=== PATIENT | female | born 1970 | race Caucasian/White ===

== ENCOUNTER → 2016-10-23 | Outpatient (CLI) | payer OTHER ==
--- NOTE | 2016-10-24 12:48 | MAMMOGRAPHY REPORT ---
BILATERAL DIGITAL SCREENING MAMMOGRAM TOMOSYNTHESIS WITH CAD: 10/23/2016 CLINICAL HISTORY: Routine screening examination. TECHNIQUE: Breast tomosynthesis in addition to standard 2D mammography was performed. Current study was also evaluated with a Computer Aided Detection (CAD) system. COMPARISON: Comparison is made to exams dated: 09/26/2015 mammogram, 08/24/2014 mammogram, and 08/21/19 14 mammogram - [facility]. BREAST COMPOSITION: There are scattered areas of fibroglandular density in both breasts. FINDINGS: No new suspicious mass, architectural distortion or cluster of microcalcifications is see n. There is a stable intramammary lymph node in the left upper outer quadrant. IMPRESSION: ACR BI-RADS CATEGORY 1: NEGATIVE There is no mammographic evidence of malignancy. A 1 year screening mammogram is recommended. The p atient will receive written notification of the results. Approximately 10% of breast cancers are not detected with mammography. A negative mammographic repor t should not delay biopsy if a clinically suggestive mass is present. Helen Perez M.D. ay/:10/24/2016 07:35:41 [place] Operator: Tea JONES(Carie)(Juice), [facility] letter sent: Normal 1/2 BI-RADS Code: ACR BI-RADS Category 1: Negative
== END | disposition home or self-care (01) ==
LOC: C.MAMM 13:47
PROVIDERS: ATTEND Family Medicine
DX: Z12.31 Encounter for screening mammogram for malignant neoplasm of breast (principal)

== ENCOUNTER 2018-10-15 17:41 | Inpatient (IN) ==
[2018-10-15] MEDS ORDERED: SODIUM CHLORIDE 0.9% 1000ML 2,000 ML IV ONE (18:31)
--- NOTE | 2018-10-15 18:40 | Emergency Department Note ---
History of Present Illness General Chief Complaint: Illness Stated Complaint: ILLNESS, L SIDE PAIN, Source: patient Mode of arrival: ambulatory Limitations: no limitations History of Present Illness Provider complaint: fever, weakness and flu like symptoms Onset (ago): week(s) 2 Maximum Temperature: 101.9 C Temperature Source: oral Maximum Pain Intensity: 6 Current Pain Intensity: 6 Context: + URI symptoms, + cough, + diarrhea and + headache; no recent travel Associated symptoms: + chills, + myalgias, + rhinorrhea, + nasal congestion, + sore throat, + chest pain, + shortness of breath, + nausea and + vomiting Relieved By: + nothing Exacerbated By: + nothing Treatments prior to arrival fever: + none This 48-year-old female patient presents emergency department today, ambulatory, accompanied by her . She is complaining of "I do not feel good". The pa valentin states for 2 weeks, "I have been sick". She reports upper respiratory infection symptoms including congestion, rhinorrhea, and sore throat. Over the weekend, the patient states the cold "moved into my chest". She states she has developed coughing, chest congestion, and dyspnea. She denies any fevers today, but states last week she had fevers of 101.9. She is taken no medications for the fever or other symptoms because she has been sick. She does report pain "in my left side that goes to my back". She does report the cough is productive of clear mucus. She did get a flu vaccination this year. She describes the pain as achy. She denies any aggravating or alleviating factors, but then states that coughing seems to make it worse. She has difficulty breathing, again with coughing, and states this has developed recently. The patient denies any dysuria, urinary frequency, constipation, abdominal pain, ongoing diarrhea, numbness or tingling, recent trauma, or neurological symptoms. Home Medications Home Medications Medication Instructions Recorded Confirmed Type ascorbic acid (vitamin C) 1 g PO DAILY 10/15/18 10/15/18 History calcium carbonate-vitamin D3 1 cap PO DAILY 10/15/18 10/15/18 History [Calcium 600 with Vitamin D3] ferrous sulfate 325 mg PO DAILY 10/15/18 10/15/18 History magnesium 250 mg PO DAILY 10/15/18 10/15/18 History oh-0-zqa-epa-fish oil-vit D3 [Fish 1 cap PO DAILY 10/15/18 10/15/18 History Oil-Vit D3] sumatriptan succinate [Imitrex] 1 tab PO UD 10/15/18 10/15/18 History vitamin E 400 unit PO DAILY 10/15/18 10/15/18 History Allergies Allergy/AdvReac Type Severity Reaction Status Date / Time Penicillins Allergy Unknown Hives Verified 10/15/18 19:20 acetaminophen [From Vicodin] AdvReac Unknown Syncope Verified 10/15/18 19:20 hydrocodone [From Vicodin] AdvReac Unknown Syncope Verified 10/15/18 19:20 nickel AdvReac Unknown Rash Verified 10/15/18 19:20 Past Med/Surg History Medical History Migraines (Chronic) Surgical History History of (Chronic) Family History Mother Breast cancer Social History Preferred Language: Peruvian Communication Ability: Effective 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 Beliefs That Will Affect Care: None Current Living Situation: Family and Significant Other Other Information That Helps Us Care for You: No Feels Safe at Home: Yes Safety Concerns: Feels Safe At This Time Smoking Status: Never smoker Hx Alcohol Use: No Hx Substance Use: No Review of Systems A total of 10 systems reviewed and were otherwise negative Physical Exam Vital Signs Vital Signs - 24 hr 10/15/18 18:02 10/15/18 20:00 10/15/18 21:00 Temperature 38.0 C H Temperature Source Oral Sepsis Recent Fever Within 48 Hours Yes Sepsis New/Unexplained Change in Mental Status No Sepsis Action Taken by Nursing No Action Required Pulse Rate 121 H 99 H Pulse Rate [Bilateral] 108 H Pulse Rate [Right Finger] Pulse Rhythm [Bilateral] Regular Pulse Strength [Bilateral] Normal Respiratory Rate 28 H 20 18 Respiratory Effort / Characteristics Non-Labored Respiratory Depth Normal Respiratory Pattern Regular Blood Pressure 140/69 112/71 Blood Pressure [Right Arm] 108/79 Blood Pressure Mean 92 Blood Pressure Mean [Right Arm] 88 Blood Pressure Position [Right Arm] Sitting Pulse Oximetry 88 L 97 98 Oxygen Delivery Method Room Air Nasal Cannula Nasal Cannula Oxygen Flow Rate 2 2 10/15/18 23:55 Temperature 37.0 C Temperature Source Oral Sepsis Recent Fever Within 48 Hours Sepsis New/Unexplained Change in Mental Status Sepsis Action Taken by Nursing Pulse Rate Pulse Rate [Bilateral] Pulse Rate [Right Finger] 85 Pulse Rhythm [Bilateral] Pulse Strength [Bilateral] Respiratory Rate 20 Respiratory Effort / Characteristics Respiratory Depth Respiratory Pattern Blood Pressure Blood Pressure [Right Arm] 109/74 Blood Pressure Mean Blood Pressure Mean [Right Arm] 85 Blood Pressure Position [Right Arm] Pulse Oximetry 94 Oxygen Delivery Method Nasal Cannula Oxygen Flow Rate 2 VITALS: Vitals are noted on the nurse's note and reviewed by myself. Vital signs stable. GENERAL: This is a 48-year-old white female, ill-appearing, in no acute distress, nondiaphoretic, well-developed well-nourished. SKIN: The skin was warm, without rashes, erythema, edema, or bruising. There is no tenting of the skin. Capillary reflex less than 2 seconds. HEAD: Normocephalic atraumatic. EARS: External auditory canals clear, tympanic membranes pearly olivarez without erythema or effusion bilaterally. EYES: Pupils equal round and reactive to light and accommodation. Conjunctivae without injection, sclerae without icterus. Extraocular movements intact. NOSE: Patent, turbinates without inflammation or discharge. No sinus tenderness. MOUTH: Mucous membranes moist. Tonsils are not enlarged. Pharynx without erythema or exudate. Uvula midline. Airway patent. Tongue does not deviate. NECK: Supple without nuchal rigidity. No lymphadenopathy. No thyromegaly. Cervical spine is nontender. No JVD. HEART: Regular rate and rhythm without murmurs gallops or rubs. LUNGS: Diminished lung sounds at the bases. The lungs were otherwise clear to auscultation bilaterally without wheezes, rales or rhonchi. No dullness to percussion. No retractions or accessory muscle use. ABDOMEN: Positive bowel sounds x 4. Normal tympanic percussion. Soft, nontender, without masses or organomegaly. [place] sign negative. No guarding or rebound tenderness. MUSCULOSKELETAL: No muscle atrophy, erythema, or edema noted. Full range of motion without joint tenderness in all extremities. No tenderness to palpation. Normal gait. Strength 5/5 throughout. NEURO: Patient was alert and oriented to person place and time. Normal sensation to light and sharp touch. Deep tendon reflexes 2+ throughout. No focal neurological deficits. Cranial nerves II through XII grossly intact. Course The patient was seen and evaluated as above. IV access obtained, labs drawn. The patient was hydrated with 2 L normal saline solution. Oxygen initiated due to hypoxia with O2 sat of 88%. Imaging performed and reviewed by myself and radiologist as above. Labs reviewed by myself. I discussed the findings with the patient at bedside. I consulted with the ED pharmacist, Audrey. 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 I do feel that the patient would benefit from inpatient admission and IV antibiotics. I discussed the case with the caseworker protective services, Beau. The patient does meet criteria for admission. I consulted with Dr. Luna of the [facility] hospitalist service. He did agree to see and evaluate the patient. I discussed the case with my attending. Please see hospitalist dictation regarding ongoing management care of this patient. Administered Medications Acetaminophen (Tylenol) 650 mg PO Q4H PRN PRN Reason: pain/fever Stop: 11/14/18 19:58 Last Admin: 10/15/18 20:54 Dose: 650 mg Documented by: [id number] Enoxaparin Sodium (Lovenox) 40 mg SQ Q24H [facility] Stop: 11/14/18 21:59 Last Admin: 10/15/18 22:00 Dose: 40 mg Documented by: [id number] Potassium Chloride 40 meq/ (Sodium Chloride) 1,020 mls @ 100 mls/hr IV .[id number] [facility] Stop: 11/14/18 22:29 Last Admin: 10/15/18 22:28 Dose: 100 mls/hr Documented by: [id number] Ipratropium [place] (Atrovent 0.02% 0.5mg/2.5ml) 0.5 mg INH Q6R SOFI Stop: 11/14/18 21:25 Last Admin: 10/15/18 22:10 Dose: Not Given Documented by: [id number] Levalbuterol HCl (Xopenex 1.25mg/0.5ml Neb) 1.25 mg INH Q6R SOFI Stop: 11/14/18 21:25 Last Admin: 10/15/18 22:10 Dose: Not Given Documented by: [id number] Discontinued Medications Sodium Chloride (Nss 1000ml) 2,000 mls @ 999 mls/hr IV .[id number] ONE Stop: 10/15/18 20:31 Last Infusion: 10/15/18 21:46 Dose: 0 mls/hr Documented by: [id number] Admin: 10/15/18 19:10 Dose: 999 mls/hr Documented by: [id number] Cefepime HCl 2,000 mg/ Syringe 20 mls @ 5.5 mls/min IV NOW STA Stop: 10/15/18 19:32 Last Admin: 10/15/18 19:54 Dose: 5.5 mls/min Documented by: [id number] Azithromycin 500 mg/ Dextrose 255 mls @ 125 mls/hr IV ONE ONE Stop: 10/15/18 21:31 Last Infusion: 10/15/18 22:11 Dose: 0 mls/hr Documented by: [id number] Admin: 10/15/18 19:54 Dose: 125 mls/hr Documented by: [id number] Potassium Chloride (Klor-Con M20) 40 meq PO NOW STA Stop: 10/15/18 19:46 Last Admin: 10/15/18 20:53 Dose: 40 meq Documented by: [id number] Medical Decision Making Differential Diagnosis + cellulitis, + fever of unknown origin, + gastroenteritis, + community acquired pneumonia, + pyelonephritis, + viral infection, + sepsis, + influenza, + viral syndrome, + strep pharyngitis, + tonsillitis, + mononucleosis, + meningitis, + encephalitis, + Lyme disease, + bronchitis and + pneumonia Home Medications Current Medication List: was personally reviewed by [facility] Laboratory Data Leukocytosis of 16,000. No significant anemia. INR elevated at 1.2. Renal, hepatic function without significant abnormalities. Patient was slightly hypokalemic at 2.9. Glucose mildly elevated at 113. Troponin negative. Lipase normal. Lactate 1.0. Magnesium 2.0. Urinalysis does appear contaminated, but was positive for 3+ bacteria and nitrites. Negative influenza testing. Result diagrams: 10/15/18 18:35 10/15/18 18:35 Lab Results 10/15/18 10/15/18 10/15/18 Range/Units 18:35 18:35 18:35 WBC 16.55 H (4.8-10.8) K/uL RBC 4.12 L (4.2-5.4) M/uL Hgb 12.1 (12.0-16.0) g/dL Hct 35.3 L (37-47) % MCV 85.7 (80-100) fL MCH 29.4 (25-34) pg MCHC 34.3 (32-36) g/dL RDW Std Deviation 41.4 (36.4-46.3) fL RDW Coeff of Alok 13.0 (11.5-14.5) % Plt Count 282 (130-400) K/uL MPV 11.1 H (7.4-10.4) fL Immature Gran % (Auto) 0.4 % Neut % (Auto) 89.4 % Lymph % (Auto) 4.1 % Anderson % (Auto) 6.0 % Eos % (Auto) 0.0 % Baso % (Auto) 0.1 % Immature Gran # (Auto) 0.07 H (0.00-0.02) K/uL Neut # (Auto) 14.79 H (1.4-6.5) K/uL Lymph # (Auto) 0.68 L (1.2-3.4) K/uL Anderson # (Auto) 1.00 H (0.11-0.59) K/uL Eos # (Auto) 0.00 (0-0.5) K/uL Baso # (Auto) 0.01 (0-0.2) K/uL Dohle Bodies 1+ PT 11.8 (9.0-12.0) Seconds INR 1.2 H (0.9-1.1) APTT 24.0 (21.0-31.0) Seconds PTT Ratio 0.9 Sodium 137 (136-145) mmol/L Potassium 2.9 L (3.5-5.1) mmol/L Chloride 100 (98-107) mmol/L Carbon Dioxide 30 (21-32) mmol/L Anion Gap 7.0 (3-11) BUN 11 (7-18) mg/dl Creatinine 0.59 L (0.6-1.2) mg/dl Est Cr Clr Drug Dosing 137.1 ml/min Est GFR ( Amer) 124.7 Est GFR (Non-Af Amer) 107.6 BUN/Creatinine Ratio 18.9 (10-20) Glucose 113 H (70-99) mg/dl Lactate (0.4-2.0) mmol/L Calcium 8.7 (8.5-10.1) mg/dl Magnesium (1.8-2.4) mg/dl Total Bilirubin 0.7 (0.2-1) mg/dl AST 9 L (15-37) U/L ALT 14 (12-78) U/L Alkaline Phosphatase 84 (45-117) U/L Troponin I < 0.015 (0-0.045) ng/ml Total Protein 7.5 (6.4-8.2) gm/dl Albumin 2.4 L (3.4-5.0) gm/dl Globulin 5.1 H (2.5-4.0) gm/dl Albumin/Globulin Ratio 0.5 L (0.9-2) Lipase 157 (73-393) U/L Urine Color Urine Appearance (Clear) Urine pH (4.5-7.5) Ur Specific [place] (1.000-1.030) Urine Protein (Negative) Urine Glucose (UA) (Negative) Urine Ketones (Negative) Urine Blood (Negative) Urine Nitrite (Negative) Urine Bilirubin (Negative) Urine Urobilinogen (Negative) Ur Leukocyte Esterase (Negative) Urine WBC (Auto) (0-5) /hpf Urine RBC (Auto) (0-4) /hpf U Hyaline Cast (Auto) (0-5) /lpf U Epithel Cells (Auto) (0-5) /lpf Urine Bacteria (Auto) (Negative) Ur Renal Epithelial Cell Influenza Type A Ag (Neg) Influenza Type B Ag (Neg) 10/15/18 10/15/18 10/15/18 Range/Units 18:35 18:35 18:54 WBC (4.8-10.8) K/uL RBC (4.2-5.4) M/uL Hgb (12.0-16.0) g/dL Hct (37-47) % MCV (80-100) fL MCH (25-34) pg MCHC (32-36) g/dL RDW Std Deviation (36.4-46.3) fL RDW Coeff of Alok (11.5-14.5) % Plt Count (130-400) K/uL MPV (7.4-10.4) fL Immature Gran % (Auto) % Neut % (Auto) % Lymph % (Auto) % Anderson % (Auto) % Eos % (Auto) % Baso % (Auto) % Immature Gran # (Auto) (0.00-0.02) K/uL Neut # (Auto) (1.4-6.5) K/uL Lymph # (Auto) (1.2-3.4) K/uL Anderson # (Auto) (0.11-0.59) K/uL Eos # (Auto) (0-0.5) K/uL Baso # (Auto) (0-0.2) K/uL Dohle Bodies PT (9.0-12.0) Seconds INR (0.9-1.1) APTT (21.0-31.0) Seconds PTT Ratio Sodium (136-145) mmol/L Potassium (3.5-5.1) mmol/L Chloride (98-107) mmol/L Carbon Dioxide (21-32) mmol/L Anion Gap (3-11) BUN (7-18) mg/dl Creatinine (0.6-1.2) mg/dl Est Cr Clr Drug Dosing ml/min Est GFR ( Amer) Est GFR (Non-Af Amer) BUN/Creatinine Ratio (10-20) Glucose (70-99) mg/dl Lactate 1.0 (0.4-2.0) mmol/L Calcium (8.5-10.1) mg/dl Magnesium 2.0 (1.8-2.4) mg/dl Total Bilirubin (0.2-1) mg/dl AST (15-37) U/L ALT (12-78) U/L Alkaline Phosphatase (45-117) U/L Troponin I Cancelled (0-0.045) ng/ml Total Protein (6.4-8.2) gm/dl Albumin (3.4-5.0) gm/dl Globulin (2.5-4.0) gm/dl Albumin/Globulin Ratio (0.9-2) Lipase Cancelled (73-393) U/L Urine Color Urine Appearance (Clear) Urine pH (4.5-7.5) Ur Specific [place] (1.000-1.030) Urine Protein (Negative) Urine Glucose (UA) (Negative) Urine Ketones (Negative) Urine Blood (Negative) Urine Nitrite (Negative) Urine Bilirubin (Negative) Urine Urobilinogen (Negative) Ur Leukocyte Esterase (Negative) Urine WBC (Auto) (0-5) /hpf Urine RBC (Auto) (0-4) /hpf U Hyaline Cast (Auto) (0-5) /lpf U Epithel Cells (Auto) (0-5) /lpf Urine Bacteria (Auto) (Negative) Ur Renal Epithelial Cell Influenza Type A Ag (Neg) Influenza Type B Ag (Neg) 10/15/18 10/15/18 Range/Units 19:02 19:12 WBC (4.8-10.8) K/uL RBC (4.2-5.4) M/uL Hgb (12.0-16.0) g/dL Hct (37-47) % MCV (80-100) fL MCH (25-34) pg MCHC (32-36) g/dL RDW Std Deviation (36.4-46.3) fL RDW Coeff of Alok (11.5-14.5) % Plt Count (130-400) K/uL MPV (7.4-10.4) fL Immature Gran % (Auto) % Neut % (Auto) % Lymph % (Auto) % Anderson % (Auto) % Eos % (Auto) % Baso % (Auto) % Immature Gran # (Auto) (0.00-0.02) K/uL Neut # (Auto) (1.4-6.5) K/uL Lymph # (Auto) (1.2-3.4) K/uL Anderson # (Auto) (0.11-0.59) K/uL Eos # (Auto) (0-0.5) K/uL Baso # (Auto) (0-0.2) K/uL Dohle Bodies PT (9.0-12.0) Seconds INR (0.9-1.1) APTT (21.0-31.0) Seconds PTT Ratio Sodium (136-145) mmol/L Potassium (3.5-5.1) mmol/L Chloride (98-107) mmol/L Carbon Dioxide (21-32) mmol/L Anion Gap (3-11) BUN (7-18) mg/dl Creatinine (0.6-1.2) mg/dl Est Cr Clr Drug Dosing ml/min Est GFR ( Amer) Est GFR (Non-Af Amer) BUN/Creatinine Ratio (10-20) Glucose (70-99) mg/dl Lactate (0.4-2.0) mmol/L Calcium (8.5-10.1) mg/dl Magnesium (1.8-2.4) mg/dl Total Bilirubin (0.2-1) mg/dl AST (15-37) U/L ALT (12-78) U/L Alkaline Phosphatase (45-117) U/L Troponin I (0-0.045) ng/ml Total Protein (6.4-8.2) gm/dl Albumin (3.4-5.0) gm/dl Globulin (2.5-4.0) gm/dl Albumin/Globulin Ratio (0.9-2) Lipase (73-393) U/L Urine Color Dark Yellow Urine Appearance Clear (Clear) Urine pH 7.5 (4.5-7.5) Ur Specific [place] 1.022 (1.000-1.030) Urine Protein 2+ H (Negative) Urine Glucose (UA) Negative (Negative) Urine Ketones Negative (Negative) Urine Blood 1+ H (Negative) Urine Nitrite Positive H (Negative) Urine Bilirubin Negative (Negative) Urine Urobilinogen Positive H (Negative) Ur Leukocyte Esterase Negative (Negative) Urine WBC (Auto) 1-5 (0-5) /hpf Urine RBC (Auto) 5-10 H (0-4) /hpf U Hyaline Cast (Auto) 1-5 (0-5) /lpf U Epithel Cells (Auto) >30 H (0-5) /lpf Urine Bacteria (Auto) 3+ H (Negative) Ur Renal Epithelial Cell Not Reportable Influenza Type A Ag Neg for Influ A (Neg) Influenza Type B Ag Neg for Influ B (Neg) Imaging Data Radiologist's Impression: XR chest 1V portable CLINICAL HISTORY: Sepsis. COMPARISON STUDY: No previous studies for comparison. FINDINGS: Lung volumes are diminished. Extensive bibasilar opacities are present. Cardiac size is likely within normal limits. Mediastinal contours are u nremarkable. There is no pneumothorax. No definite pleural effusion. There is no evidence for pulmonary edema. IMPRESSION: Extensive bibasilar opacities which favor pneumonia. Atelectasis could appear similar although is considered less likely. Radiographic follow-up to ensure resolution is recommended. Electronically signed by: Adriel Hayward M.D. 10/15/2018 7:19 PM ECG Data Attestation: I personally reviewed and interpreted this ECG as follows: Indication: SOB/dyspnea Rate (beats per minute): 110 Rhythm: sinus tachycardia Findings: no acute ischemic change and no ectopy Comparison ECG Date: no prior available Blood Pressure Blood Pressure Findings: Normal blood pressure MDM Narrative This 48-year-old female patient presents emergency department today complaining of dyspnea, cough, upper respiratory infection symptoms, chest achiness, and fever. Symptoms are concerning for infectious etiology. I did initiate IV fluids and laboratory evaluation. Workup was concerning for bibasilar pneumonia. 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 Because of this, we did elect to cover for Pseudomonas with cefepime in addition to azithromycin. I feel that the patient will benefit from inpatient admission and IV antibiotics. She was hypoxic with an O2 saturation of 88% on room air while here in the emergency department and required oxygen. Initiated IV cefepime and azithromycin in addition to the IV fluids. I discussed the case with the hospitalist, they did agree to see and evaluate the patient for admission. Please see their dictation regarding ongoing management care of this patient. The chart was completed utilizing [employer] Speech voice recognition software. Grammatical errors, random word insertions, pronoun errors, and incomplete sente nces are an occasional consequence of this system due to software limitations, ambient noise, and hardware issues. Any formal questions or concerns about the content, text, or information contained within the body of this dictation should be directly addressed to the provider for clarification. Impression & Plan Pneumonia, Sepsis, Acute respiratory failure with hypoxia, Hypokalemia Critical Care Time I have personally spent greater than 30 minutes of critical care time in the direct management of this patient. This includes bedside care, interpretation of diagnostic studies, and testing, discussion with consultants, patient, and family members, and other required patient management activities. This 30 minutes is in excess of all separately billable procedures. Critical Care Time: Yes Total Critical Care Time: 30 Discharge Plan Visit Data *Final* Discharge Date/Time: 10/15/18 21:00 Chief Complaint: Illness Stated Complaint: ILLNESS, L SIDE PAIN, ED Provider: Nomi Flores ED Midlevel Provider: Blanco,Nora D Discharge Problem: Pneumonia, Sepsis, Acute respiratory failure with hypoxia, Hypokalemia Patient Disposition: Admitted As Inpatient Discharge Instructions Interventions: ED Discharge Assessment Last Done: 10/15/18 21:00 Discharge Problem: Pneumonia Qualifiers: Pneumonia type: due to unspecified organism Laterality: bilateral Lung location: lower lobe of lung Qualified Code(s): J18.1 - Lobar pneumonia, unspecified organism Sepsis Qualifiers: Sepsis type: sepsis due to unspecified organism Qualified Code(s): A41.9 - Sepsis, unspecified organism
[2018-10-15 19:11] LABS: Hematocrit (blood only) 35.3 % (37-47); Hemoglobin 12.1 g/dL (12.0-16.0); Mean Corpuscular Hgb Conc 34.3 g/dL (32-36); Mean Corpuscular Volume 85.7 fL (80-100); Mean Platelet Volume 11.1 fL (7.4-10.4); Platelet Count 282 K/uL (130-400); RDW Standard Deviation 41.4 fL (36.4-46.3); Red Blood Count 4.12 M/uL (4.2-5.4); White Blood Count 16.55 K/uL (4.8-10.8)
--- NOTE | 2018-10-15 19:20 | XRay Report ---
XR chest 1V portable CLINICAL HISTORY: Sepsis. COMPARISON STUDY: No previous studies for comparison. FINDINGS: Lung volumes are diminished. Extensive bibasilar opacities are present. Cardiac size is lik carmel within normal limits. Mediastinal contours are unremarkable. There is no pneumothorax. No definit e pleural effusion. There is no evidence for pulmonary edema. IMPRESSION: Extensive bibasilar opacities which favor pneumonia. Atelectasis could appear similar al though is considered less likely. Radiographic follow-up to ensure resolution is recommended. Electronically signed by: Adriel Hayward M.D. 10/15/2018 7:19 PM
[2018-10-15 19:28] LABS: Alanine Aminotransferase 14 U/L (12-78); Albumin Level 2.4 gm/dl (3.4-5.0); Aspartate Aminotransferase 9 U/L (15-37); BUN Creatinine Ratio 18.9 (10-20); Blood Urea Nitrogen 11 mg/dl (7-18); Calcium 8.7 mg/dl (8.5-10.1); Carbon Dioxide 30 mmol/L (21-32); Chloride 100 mmol/L (98-107); Creatinine Clr Calc Pharmacy 137.1 ml/min; Est GFR (African American) 124.7; Est GFR (Non-African American) 107.6; Glucose 113 mg/dl (70-99); INR 1.2 (0.9-1.1); Partial Thromboplastin Ratio 0.9; Potassium 2.9 mmol/L (3.5-5.1); Prothrombin Time 11.8 Seconds (9.0-12.0); Sodium 137 mmol/L (136-145)
[2018-10-15] MEDS ORDERED: AZITHROMYCIN 500 MG in DEXTROSE 5% 250 ML IV ONE (19:29)
[2018-10-15] MEDS ORDERED: CEFEPIME 2,000 MG in SYRINGE 7.5 ML IV STA (19:29)
[2018-10-15 19:30] LABS: Appearance Urine Clear (Clear); Bacteria Urine Automated 3+ (Negative); Bilirubin Urine Negative (Negative); Blood Urine 1+ (Negative); Color Urine Dark Yellow; Epithelial Cell Urine Auto >30 /lpf (0-5); Glucose Urine UA Negative (Negative); Ketones Urine Negative (Negative); Leukocyte Esterase Urine Negative (Negative); Nitrite Urine Positive (Negative); Specific Gravity Urine 1.022 (1.000-1.030); Urobilinogen Urine Positive (Negative); pH Urine 7.5 (4.5-7.5)
[2018-10-15 19:32] LABS: Protein Urine 2+ (Negative)
[2018-10-15 19:33] LABS: Albumin Globulin Ratio 0.5 (0.9-2); Alkaline Phosphatase 84 U/L (45-117); Bilirubin,Total 0.7 mg/dl (0.2-1); Globulin 5.1 gm/dl (2.5-4.0); Total Protein 7.5 gm/dl (6.4-8.2); Troponin I < 0.015 ng/ml (0-0.045)
[2018-10-15] MEDS ORDERED: POTASSIUM CHLORIDE 20 MEQ TABCR PO STA (19:45)
[2018-10-15 20:05] LABS: Basophils # (auto) 0.01 K/uL (0-0.2); Basophils % (auto) 0.1 %; Dohle Bodies 1+; Immature Granulocytes # (auto) 0.07 K/uL (0.00-0.02); Immature Granulocytes % (auto) 0.4 %; Lymphocytes # (auto) 0.68 K/uL (1.2-3.4); Lymphocytes % (auto) 4.1 %; Neutrophils # (auto) 14.79 K/uL (1.4-6.5); Neutrophils % (auto) 89.4 %
--- NOTE | 2018-10-15 20:49 | History & Physical Report ---
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 Patient reports she started getting sick about 1 week ago with what she describes as a head cold with sinus congestion. She reports her symptoms were initially getting better however 4 days ago she developed chest congestion with cough. Cough has been progressively getting worse. She reports that she is short of breath with minimal exertion. Cough is productive for a clear sputum. She has been running some fevers, she reports as high as 101. Cough is severe, causing her chest pain, urinary incontinence, headache. She denies exertional chest pain or at rest. No lightheadedness, dizziness, diaphoresis, syncopal events. She reports nausea and poor appetite. No abdominal pain, vomiting, diarrhea. She denies dysuria. 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 In the ED, patient was hypoxic on room air at 88% which improved with oxygen 2 L via nasal cannula. CXR is showing bibasilar pneumonia. WBC 16 K, potassium 2.9, lactic acid 1.0. Patient is tachycardic however BP is stable. Patient was given IVF, IV cefepime, IV azithromycin. Allergies Allergy/AdvReac Type Severity Reaction Status Date / Time Penicillins Allergy Unknown Hives Verified 10/15/18 19:20 acetaminophen [From Vicodin] AdvReac Unknown Syncope Verified 10/15/18 19:20 hydrocodone [From Vicodin] AdvReac Unknown Syncope Verified 10/15/18 19:20 nickel AdvReac Unknown Rash Verified 10/15/18 19:20 Home Medications Home Medications Medication Instructions Recorded Confirmed Type ascorbic acid (vitamin C) 1 g PO DAILY 10/15/18 10/15/18 History calcium carbonate-vitamin D3 1 cap PO DAILY 10/15/18 10/15/18 History [Calcium 600 with Vitamin D3] ferrous sulfate 325 mg PO DAILY 10/15/18 10/15/18 History magnesium 250 mg PO DAILY 10/15/18 10/15/18 History [id number] oil-vit D3 [Fish 1 cap PO DAILY 10/15/18 10/15/18 History Oil-Vit D3] sumatriptan succinate [Imitrex] 1 tab PO UD 10/15/18 10/15/18 History vitamin E 400 unit PO DAILY 10/15/18 10/15/18 History Past Med/Surg History Medical History Migraines (Chronic) Surgical History History of (Chronic) Family History Mother Breast cancer Social History Preferred Language: French Communication Ability: Effective Jive Developer Required: No Beliefs That Will Affect Care: None Current Living Situation: Family and Significant Other Other Information That Helps Us Care for You: No Feels Safe at Home: Yes Safety Concerns: Feels Safe At This Time Smoking Status: Never smoker Hx Alcohol Use: No Hx Substance Use: No Review of Systems ROS per HPI, all other systems reviewed and negative Physical Exam Vital Signs (Past 24 Hours): Last Vital Signs Temp 38.0 C H 10/15/18 18:02 Pulse 121 H 10/15/18 18:02 Resp 28 H 10/15/18 18:02 BP 140/69 10/15/18 18:02 Pulse Ox 88 L 10/15/18 18:02 Constitutional: WD/WN, vitals as above Eyes: PERRL, conjunctivae normal, anicteric sclerae ENMT: Ears: no external ear abnormality Nose: no external nose abnormality Mouth: + edentulous Respiratory: normal respiratory effort; no respiratory distress Auscultation: + diminished lung sounds and + rhonchi (Upper anterior lung head) Cardiovascular: Rate/Rhythm: regular rate and + tachycardic Vessels: normal peripheral pulses Extremities: no edema Gastrointestinal (Abdomen): normal bowel sounds, soft, nontender, no hepatosplenomegaly Musculoskeletal: no cyanosis or clubbing, extremities motor strength 5/5 Skin: no rashes, warm and dry Neurologic: PERRL, EOMI, accommodation nl, no face palsy, no dysarthria Psychiatric: A+Ox3, euthymic affect Results & Data Laboratory Results Laboratory Last Values WBC 16.55 K/uL (4.8-10.8) H 10/15/18 18:35 RBC 4.12 M/uL (4.2-5.4) L 10/15/18 18:35 Hgb 12.1 g/dL (12.0-16.0) 10/15/18 18:35 Hct 35.3 % (37-47) L 10/15/18 18:35 MCV 85.7 fL (80-100) 10/15/18 18:35 MCH 29.4 pg (25-34) 10/15/18 18:35 MCHC 34.3 g/dL (32-36) 10/15/18 18:35 RDW Std Deviation 41.4 fL (36.4-46.3) 10/15/18 18:35 RDW Coeff of Alok 13.0 % (11.5-14.5) 10/15/18 18:35 Plt Count 282 K/uL (130-400) 10/15/18 18:35 MPV 11.1 fL (7.4-10.4) H 10/15/18 18:35 Immature Gran % (Auto) 0.4 % 10/15/18 18:35 Neut % (Auto) 89.4 % 10/15/18 18:35 Lymph % (Auto) 4.1 % 10/15/18 18:35 [place] % (Auto) 6.0 % 10/15/18 18:35 Eos % (Auto) 0.0 % 10/15/18 18:35 Baso % (Auto) 0.1 % 10/15/18 18:35 Immature Gran # (Auto) 0.07 K/uL (0.00-0.02) H 10/15/18 18:35 Neut # (Auto) 14.79 K/uL (1.4-6.5) H 10/15/18 18:35 Lymph # (Auto) 0.68 K/uL (1.2-3.4) L 10/15/18 18:35 [place] # (Auto) 1.00 K/uL (0.11-0.59) H 10/15/18 18:35 Eos # (Auto) 0.00 K/uL (0-0.5) 10/15/18 18:35 Baso # (Auto) 0.01 K/uL (0-0.2) 10/15/18 18:35 Dohle Bodies 1+ 10/15/18 18:35 PT 11.8 Seconds (9.0-12.0) 10/15/18 18:35 INR 1.2 (0.9-1.1) H 10/15/18 18:35 APTT 24.0 Seconds (21.0-31.0) 10/15/18 18:35 PTT Ratio 0.9 10/15/18 18:35 Sodium 137 mmol/L (136-145) 10/15/18 18:35 Potassium 2.9 mmol/L (3.5-5.1) L 10/15/18 18:35 Chloride 100 mmol/L (98-107) 10/15/18 18:35 Carbon Dioxide 30 mmol/L (21-32) 10/15/18 18:35 Anion Gap 7.0 (3-11) 10/15/18 18:35 BUN 11 mg/dl (7-18) 10/15/18 18:35 Creatinine 0.59 mg/dl (0.6-1.2) L 10/15/18 18:35 Est Cr Clr Drug Dosing 137.1 ml/min 10/15/18 18:35 Est GFR ( Amer) 124.7 10/15/18 18:35 Est GFR (Non-Af Amer) 107.6 10/15/18 18:35 BUN/Creatinine Ratio 18.9 (10-20) 10/15/18 18:35 Glucose 113 mg/dl (70-99) H 10/15/18 18:35 Lactate 1.0 mmol/L (0.4-2.0) 10/15/18 18:54 Calcium 8.7 mg/dl (8.5-10.1) 10/15/18 18:35 Magnesium 2.0 mg/dl (1.8-2.4) 10/15/18 18:35 Total Bilirubin 0.7 mg/dl (0.2-1) 10/15/18 18:35 AST 9 U/L (15-37) L 10/15/18 18:35 ALT 14 U/L (12-78) 10/15/18 18:35 Alkaline Phosphatase 84 U/L (45-117) 10/15/18 18:35 Troponin I < 0.015 ng/ml (0-0.045) 10/15/18 18:35 Total Protein 7.5 gm/dl (6.4-8.2) 10/15/18 18:35 Albumin 2.4 gm/dl (3.4-5.0) L 10/15/18 18:35 Globulin 5.1 gm/dl (2.5-4.0) H 10/15/18 18:35 Albumin/Globulin Ratio 0.5 (0.9-2) L 10/15/18 18:35 Lipase 157 U/L (73-393) 10/15/18 18:35 Urine Color Dark Yellow 10/15/18 19:12 Urine Appearance Clear (Clear) 10/15/18 19:12 Urine pH 7.5 (4.5-7.5) 10/15/18 19:12 Ur Specific [place] 1.022 (1.000-1.030) 10/15/18 19:12 Urine Protein 2+ (Negative) H 10/15/18 19:12 Urine Glucose (UA) Negative (Negative) 10/15/18 19:12 Urine Ketones Negative (Negative) 10/15/18 19:12 Urine Blood 1+ (Negative) H 10/15/18 19:12 Urine Nitrite Positive (Negative) H 10/15/18 19:12 Urine Bilirubin Negative (Negative) 10/15/18 19:12 Urine Urobilinogen Positive (Negative) H 10/15/18 19:12 Ur Leukocyte Esterase Negative (Negative) 10/15/18 19:12 Urine WBC (Auto) 1-5 /hpf (0-5) 10/15/18 19:12 Urine RBC (Auto) 5-10 /hpf (0-4) H 10/15/18 19:12 U Hyaline Cast (Auto) 1-5 /lpf (0-5) 10/15/18 19:12 U Epithel Cells (Auto) >30 /lpf (0-5) H 10/15/18 19:12 Urine Bacteria (Auto) 3+ (Negative) H 10/15/18 19:12 Ur Renal Epithelial Cell Not Reportable 10/15/18 19:12 Influenza Type A Ag Neg for Influ A (Neg) 10/15/18 19:02 Influenza Type B Ag Neg for Influ B (Neg) 10/15/18 19:02 Diagnostic Findings CXR IMPRESSION: Extensive bibasilar opacities which favor pneumonia. Atelectasis could appear similar although is considered less likely. Radiographic follow-up to ensure resolution is recommended. Code Status & VTE Plan VTE Prophylaxis Plan VTE Prophylaxis will be ordered: Yes Supervising Physician Co-Signing Physician Notes Care coordinated with Christy Vallejo. Agree with above note. Patient seen and examined. Please refer to her notes for full details. Vital signs reviewed. Physical exam: General exam: Alert and oriented. Not in acute distress. CVS: S1 and S2 heard, regular rate and rhythm, no murmurs. RS: Clear to auscultation, no wheezing or crackles. ABD: Soft, bowel sounds present, nontender, no distention. 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 EXT: No edema, no erythema. Labs: Reviewed. Assessment and plan: Bibasilar pneumonia hypoxia on room air iv cefepime and azithromycin nebs prn close monitor. UTI follow cx abx as above Hypokalemia will replace follow labs Other diagnosis and plan of care as per []. Enrique diggs MD.
[2018-10-15] MEDS: ACETAMINOPHEN 325 MG TAB PO PRN (20:54)
[2018-10-15] MEDS: ENOXAPARIN INJ 40 MG/0.4 ML SYR SQ SCH (22:00)
[2018-10-15] MEDS: LEVALBUTEROL 1.25MG/0.5ML NEB INH SCH (22:10)
[2018-10-15] MEDS: IPRATROPIUM BROMIDE NEB SOLN 0.02% 2.5 ML VIAL INH SCH (22:10)
[2018-10-15] MEDS: POTASSIUM CHLORIDE 40 MEQ in SODIUM CHLORIDE 0.9% 1000ML 1,000 ML IV SCH (22:28)
[2018-10-16] MEDS: IPRATROPIUM BROMIDE NEB SOLN 0.02% 2.5 ML VIAL INH SCH ×4 (01:56→20:17)
[2018-10-16] MEDS: LEVALBUTEROL 1.25MG/0.5ML NEB INH SCH ×4 (01:56→20:17)
[2018-10-16] MEDS ORDERED: XOPENEX/ATROVENT 1.25mg/0.5MG NEB COMBO NEB SCH (02:00)
[2018-10-16] MEDS: CEFEPIME 2,000 MG in SYRINGE 7.5 ML IV SCH ×3 (03:22→21:27)
[2018-10-16] MEDS: ACETAMINOPHEN 325 MG TAB PO PRN (03:27)
[2018-10-16] MEDS: HYDROCODONE/HOMATROPINE SYRUP 5MG/1.5MG 5ML UDP PO PRN ×3 (06:47→23:55)
[2018-10-16 07:02] LABS: Hematocrit (blood only) 34.8 % (37-47); Hemoglobin 11.5 g/dL (12.0-16.0); Mean Corpuscular Volume 87.9 fL (80-100); Mean Platelet Volume 10.8 fL (7.4-10.4); Platelet Count 251 K/uL (130-400); RDW Coefficient of Variation 13.2 % (11.5-14.5); RDW Standard Deviation 42.7 fL (36.4-46.3); Red Blood Count 3.96 M/uL (4.2-5.4); White Blood Count 11.78 K/uL (4.8-10.8)
[2018-10-16 07:21] LABS: BUN Creatinine Ratio 20.1 (10-20); Calcium 8.5 mg/dl (8.5-10.1); Creatinine Clr Calc Pharmacy 134.3 ml/min; Est GFR (African American) 125.4; Est GFR (Non-African American) 108.2; Potassium 3.5 mmol/L (3.5-5.1)
[2018-10-16] MEDS: POTASSIUM CHLORIDE 40 MEQ in SODIUM CHLORIDE 0.9% 1000ML 1,000 ML IV SCH ×2 (09:33→18:46)
--- NOTE | 2018-10-16 09:41 | Hospitalist Progress Note ---
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, add vancomycin for +Blood Culture -Rapid influenza testing negative, will check PCR -Pulmonary toilet with nebs, incentive spirometry, flutter valve -+blood Culture GPC and Urine Cx +E Coli (4) Hypokalemia: -K+ 2.9 -Replace, follow (5) DVT prophylaxis: -SQ Lovenox Subjective Still weak and SOB ROS-No Headache, No Visual Changes, No Nausea, No Vomiting, No Fever, No Chills, No Neck Pain or Stiffness, No Chest Pain, No Palpitations, No SOB, No LEIVA, + Cough, No Sputum, No Wheezing, + Abdominal Pain, No Diarrhea, No Hematemesis, No Hemoptysis, No Unexpected Weight Loss, No Flank pain, No Melena, No Hematochezia, No Frequency, No Urgency, No Burning, No Hematuria, No Rashes, No Diaphoresis. Appetite is Poor, Weak Physical Exam Gen-AAO x 3, NAD, Afebrile, Obese Head-NCAT, EOMI, PERRLA, Anicteric Sclera, No Posterior Pharyngeal Erythema Neck-Supple, No JVD, No Thyromegaly, No Masses, No LAD, No Bruits Lungs-Clear to Auscultation Bilaterally, No Rales, No Rhonchi, No Wheezing, No Crepitus Chest-No S4, +S1, +S2, No S3, No Murmurs, No Rubs, No Gallops, No Ectopy Abdomen-Soft, Bowel Sounds Present, Non Tender, Non Distended, No Hepatomegaly, No Splenomegaly, No Palpable Masses, No Rebound, No Rigidity, No Guarding Musculoskeletal-Full Range of Motion Bilaterally, No CVAT Extremities-No Cyanosis, No Clubbing, No Edema Nuero-Cranial Nerves II-XII grossly intact, Motor WNL, DTRs WNL, Strength WNL, Non Focal Psych-Normal Mood Physical Exam Vital Signs (Past 24 Hours): Last Vital Signs Temp 36.6 C 10/16/18 07:05 Pulse 91 H 10/16/18 07:38 Resp 18 10/16/18 07:38 BP 106/72 10/16/18 07:05 Pulse Ox 96 10/16/18 07:38 Results & Data Laboratory Results Current Diagnoses Sepsis, unspecified organism (10/15/18) Hypokalemia (10/15/18) Pneumonia, unspecified organism (10/15/18) Acute respiratory failure with hypoxia (10/15/18) Allergies Penicillins Allergy (Unknown, Verified 10/15/18 19:20) Hives acetaminophen [From Vicodin] Adverse Reaction (Unknown, Verified 10/15/18 19:20) Syncope hydrocodone [From Vicodin] Adverse Reaction (Unknown, Verified 10/15/18 19:20) Syncope nickel Adverse Reaction (Unknown, Verified 10/15/18 19:20) Rash Height/Weight/Isolation Height 5 ft 5 in Weight 95.8 kg Chemistry 10/15/18 10/16/18 18:35 06:47 Sodium 137 142 Potassium 2.9 L 3.5 D Chloride 100 109 H Carbon Dioxide 30 29 Anion Gap 7.0 4.0 BUN 11 12 Creatinine 0.59 L 0.58 L Glucose 113 H 103 H Urinalysis 10/15/18 19:12 Urine Color Dark Yellow Urine Appearance Clear Urine pH 7.5 Ur Specific [place] 1.022 Urine Protein 2+ H Urine Glucose (UA) Negative Urine Ketones Negative Urine Blood 1+ H Urine Nitrite Positive H Urine Bilirubin Negative Microbiology 10/15/18 18:35 Blood Blood Culture - Preliminary Gram positive cocci 10/15/18 19:12 Urine,Clean Catch Urine Culture - Preliminary Escherichia coli 10/15/18 18:54 Blood Blood Culture - Pending (1) Sepsis Sepsis type: sepsis due to unspecified organism Qualified Code(s): A41.9 - Sepsis, unspecified organism (2) Pneumonia Laterality: bilateral Lung location: lower lobe of lung Pneumonia type: due to unspecified organism Qualified Code(s): J18.1 - Lobar pneumonia, unspecified organism
[2018-10-16] MEDS ORDERED: VANCOMYCIN CONSULT ACTIVE PRN (09:44)
[2018-10-16] MEDS ORDERED: VANCOMYCIN HCL 1,000 MG in SODIUM CHLORIDE 0.9% 250 ML IV SCH (09:45)
[2018-10-16] MEDS ORDERED: VANCOMYCIN HCL 2,250 MG in SODIUM CHLORIDE 0.9% 500 ML IV SCH (11:00)
--- NOTE | 2018-10-16 11:54 | Pharmacy Report ---
Pharmacy Abx Initial Consult - Date of Service October 16, 2018 - Pharmacy Dosing Scope Date of Consult: 10/16/18 Consultation requested by: Dr. Harvey Pharmacy is consulted to initiate Vancomycin IV dosing therapy, order appropriate labs and adjust drug dose/frequency. - Subjective The patient is a 48 year old F admitted on 10/15/18 19:59. - Objective Height: 5 ft 5 in Weight: 95.8 kg (BMI 35.1) Vital Signs (Past 12hrs): Vital Signs Temp Pulse Pulse Resp BP Pulse Ox 10/16/18 08:00 94 H 10/16/18 07:38 91 H 18 96 10/16/18 07:05 36.6 C 88 18 106/72 90 10/16/18 01:56 83 18 93 10/16/18 01:35 94 H 10/15/18 23:55 37.0 C 85 20 109/74 94 Lab Results (24hrs): Laboratory Tests (24 Hours) 10/16/18 10/16/18 10/15/18 06:47 06:47 18:35 WBC 11.78 H Neut # (Auto) Creatinine 0.58 L 0.59 L Est Cr Clr Drug Dosing 134.3 137.1 10/15/18 18:35 WBC 16.55 H Neut # (Auto) 14.79 H Creatinine Est Cr Clr Drug Dosing Micro Results: 10/16/18 10:31 Blood Culture - Pending Blood 10/16/18 10:20 Blood Culture - Pending Blood - Assessment & Plan Assessment 48 year old F admitted with progressive cough and SOB. Has been sick for approx. 1 week with head cold /sinus congestion. Symptoms were improving but 4 days ago developed chest congestion with cough which has been getting progressively worse. Has SOB with minimal exertion. She has also been running fevers as high as 101. CXR shows bibasilar pneumonia. Vancomycin added due to positive blood cultures. Repeat blood cultures are pending. * Rapid flu negative * MRSA nasal negative Plan Vancomcyin for treatment of bacteremia (pulm source) Vancomycin IV * Estimated PK Parameters: Vd 0.54 L/kg, Alber 0.104 hr-1, t1/2 6.67 hr * Loading dose: 2250 mg (~ 23.5 mg/kg) * Maintenance dose: 1250 mg IV (~13 mg/kg) every 8 hours * Goal trough level for bacteremia : 15 to 20 mcg/mL * Trough level ordered for10/17/18 @ 1930 Cefepime IV * 2gm IV q8h. * Dosing appropriate for renal function Pharmacy will continue to follow and will adjust dose/frequency as necessary. Thank you.
[2018-10-16] MEDS ORDERED: AZITHROMYCIN 500 MG in DEXTROSE 5% 250 ML IV SCH (20:00)
[2018-10-16] MEDS: ENOXAPARIN INJ 40 MG/0.4 ML SYR SQ SCH (21:35)
[2018-10-16] MEDS: VANCOMYCIN HCL 1,250 MG in SODIUM CHLORIDE 0.9% 250 ML IV SCH (21:35)
[2018-10-16 23:43] LABS: Magnesium 2.1 mg/dl (1.8-2.4)
[2018-10-17] MEDS: ACETAMINOPHEN 325 MG TAB PO PRN ×3 (00:28→19:47)
[2018-10-17] MEDS: IPRATROPIUM BROMIDE NEB SOLN 0.02% 2.5 ML VIAL INH SCH ×4 (00:43→20:24)
[2018-10-17] MEDS: LEVALBUTEROL 1.25MG/0.5ML NEB INH SCH ×4 (00:44→20:24)
[2018-10-17] MEDS: CEFEPIME 2,000 MG in SYRINGE 7.5 ML IV SCH ×2 (04:52→12:39)
[2018-10-17] MEDS: VANCOMYCIN HCL 1,250 MG in SODIUM CHLORIDE 0.9% 250 ML IV SCH ×3 (04:53→21:14)
[2018-10-17] MEDS: POTASSIUM CHLORIDE 40 MEQ in SODIUM CHLORIDE 0.9% 1000ML 1,000 ML IV SCH ×2 (06:23→19:06)
[2018-10-17 08:16] LABS: BUN Creatinine Ratio 18.9 (10-20); Calcium 8.5 mg/dl (8.5-10.1); Creatinine Clr Calc Pharmacy 173.1 ml/min; Est GFR (African American) 136.4; Est GFR (Non-African American) 117.7; Potassium 3.3 mmol/L (3.5-5.1)
[2018-10-17] MEDS: HYDROCODONE/HOMATROPINE SYRUP 5MG/1.5MG 5ML UDP PO PRN ×2 (09:21→15:43)
--- NOTE | 2018-10-17 13:59 | Hospitalist Progress Note ---
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, added vancomycin for +Blood Culture- Strep Pneumo -Rapid influenza testing negative, will check PCR -Pulmonary toilet with nebs, incentive spirometry, flutter valve -+blood Culture Strep Pneumo and Urine Cx +E Coli, descalate to IV Rocephin Repeat Blood cultures neg so far, DC on PO Meds /, Omnicef +- Doxy (4) Hypokalemia: -K+ 3.3 -Replace, follow (5) DVT prophylaxis: -SQ Lovenox Subjective Starting to feel a lot better ROS-No Headache, No Visual Changes, No Nausea, No Vomiting, No Fever, No Chills, No Neck Pain or Stiffness, No Chest Pain, No Palpitations, No SOB, No LEIVA, + Cough, No Sputum, No Wheezing, + Abdominal Pain, No Diarrhea, No Hematemesis, No Hemoptysis, No Unexpected Weight Loss, No Flank pain, No Melena, No Hematochezia, No Frequency, No Urgency, No Burning, No Hematuria, No Rashes, No Diaphoresis. Appetite is Poor, Weak Physical Exam Gen-AAO x 3, NAD, Afebrile, Obese Head-NCAT, EOMI, PERRLA, Anicteric Sclera, No Posterior Pharyngeal Erythema Neck-Supple, No JVD, No Thyromegaly, No Masses, No LAD, No Bruits Lungs-Clear to Auscultation Bilaterally, No Rales, No Rhonchi, No Wheezing, No Crepitus Chest-No S4, +S1, +S2, No S3, No Murmurs, No Rubs, No Gallops, No Ectopy Abdomen-Soft, Bowel Sounds Present, Non Tender, Non Distended, No Hepatomegaly, No Splenomegaly, No Palpable Masses, No Rebound, No Rigidity, No Guarding Musculoskeletal-Full Range of Motion Bilaterally, No CVAT Extremities-No Cyanosis, No Clubbing, No Edema Nuero-Cranial Nerves II-XII grossly intact, Motor WNL, DTRs WNL, Strength WNL, Non Focal Psych-Normal Mood Physical Exam Vital Signs (Past 24 Hours): Last Vital Signs Temp 36.6 C 10/17/18 11:49 Pulse 84 10/17/18 11:49 Resp 16 10/17/18 11:49 BP 113/78 10/17/18 11:49 Pulse Ox 97 10/17/18 11:49 Results & Data Laboratory Results Current Diagnoses Sepsis, unspecified organism (10/15/18) Hypokalemia (10/15/18) Lobar pneumonia, unspecified organism (10/15/18) Pneumonia, unspecified organism (10/15/18) Acute respiratory failure with hypoxia (10/15/18) Allergies Penicillins Allergy (Unknown, Verified 10/15/18 19:20) Hives acetaminophen [From Vicodin] Adverse Reaction (Unknown, Verified 10/15/18 19:20) Syncope hydrocodone [From Vicodin] Adverse Reaction (Unknown, Verified 10/15/18 19:20) Syncope nickel Adverse Reaction (Unknown, Verified 10/15/18 19:20) Rash Height/Weight/Isolation Height 5 ft 5 in Weight 95.8 kg Chemistry 10/15/18 10/16/18 10/17/18 18:35 06:47 07:07 Sodium 137 142 142 Potassium 2.9 L 3.5 D 3.3 L Chloride 100 109 H 109 H Carbon Dioxide 30 29 27 Anion Gap 7.0 4.0 6.0 BUN 11 12 9 Creatinine 0.59 L 0.58 L 0.45 L Glucose 113 H 103 H 86 Urinalysis 10/15/18 19:12 Urine Color Dark Yellow Urine Appearance Clear Urine pH 7.5 Ur Specific [place] 1.022 Urine Protein 2+ H Urine Glucose (UA) Negative Urine Ketones Negative Urine Blood 1+ H Urine Nitrite Positive H Urine Bilirubin Negative Microbiology 10/15/18 18:35 Blood Blood Culture - Final Streptococcus pneumoniae 10/15/18 18:54 Blood Blood Culture - Preliminary Streptococcus pneumoniae 10/15/18 19:12 Urine,Clean Catch Urine Culture - Final Escherichia coli 10/16/18 10:31 Blood Blood Culture - Pending 10/16/18 10:20 Blood Blood Culture - Pending (1) Sepsis Sepsis type: sepsis due to unspecified organism Qualified Code(s): A41.9 - Sepsis, unspecified organism (2) Pneumonia Laterality: bilateral Lung location: lower lobe of lung Pneumonia type: due to unspecified organism Qualified Code(s): J18.1 - Lobar pneumonia, unspecified organism
[2018-10-17] MEDS ORDERED: VANCOMYCIN TROUGH ONE (19:30)
[2018-10-17] MEDS ORDERED: cefTRIAXone SODIUM 1,000 MG in DEXTROSE 5% 50 ML IV SCH (20:00)
[2018-10-17] MEDS ORDERED: cefTRIAXone SODIUM 2,000 MG in DEXTROSE 5% 50 ML IV SCH (20:00)
[2018-10-17] MEDS: ENOXAPARIN INJ 40 MG/0.4 ML SYR SQ SCH (22:57)
[2018-10-18] MEDS: LEVALBUTEROL 1.25MG/0.5ML NEB INH SCH ×2 (01:51→07:19)
[2018-10-18] MEDS: IPRATROPIUM BROMIDE NEB SOLN 0.02% 2.5 ML VIAL INH SCH ×2 (01:51→07:19)
[2018-10-18] MEDS: POTASSIUM CHLORIDE 40 MEQ in SODIUM CHLORIDE 0.9% 1000ML 1,000 ML IV SCH (04:02)
[2018-10-18] MEDS: VANCOMYCIN HCL 1,250 MG in SODIUM CHLORIDE 0.9% 250 ML IV SCH (04:03)
--- NOTE | 2018-10-18 08:29 | Discharge Summary ---
Date of Service October 18, 2018 Admission HPI Per Admitting Provider 48-year-old female presents to the ED with cough and shortness of breath. Patient reports she started getting sick about 1 week ago with what she describes as a head cold with sinus congestion. She reports her symptoms were initially getting better however 4 days ago she developed chest congestion with cough. Cough has been progressively getting worse. She reports that she is short of breath with minimal exertion. Cough is productive for a clear sputum. She has been running some fevers, she reports as high as 101. Cough is severe, causing her chest pain, urinary incontinence, headache. She denies exertional chest pain or at rest. No lightheadedness, dizziness, diaphoresis, syncopal events. She reports nausea and poor appetite. No abdominal pain, vomiting, diarrhea. She denies dysuria. 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 In the ED, patient was hypoxic on room air at 88% which improved with oxygen 2 L via nasal cannula. CXR is showing bibasilar pneumonia. WBC 16 K, potassium 2.9, lactic acid 1.0. Patient is tachycardic however BP is stable. Patient was given IVF, IV cefepime, IV azithromycin. Admission Exam Per Admitting Provider Temp 38.0 C H 10/15/18 18:02 Pulse 121 H 10/15/18 18:02 Resp 28 H 10/15/18 18:02 BP 140/69 10/15/18 18:02 Pulse Ox 88 L 10/15/18 18:02 Constitutional: WD/WN, vitals as above Eyes: PERRL, conjunctivae normal, anicteric sclerae ENMT: Ears: no external ear abnormality Nose: no external nose abnormality Mouth: + edentulous Respiratory: normal respiratory effort; no respiratory distress Auscultation: + diminished lung sounds and + rhonchi (Upper anterior lung head) Cardiovascular: Rate/Rhythm: regular rate and + tachycardic Vessels: normal peripheral pulses Extremities: no edema Gastrointestinal (Abdomen): normal bowel sounds, soft, nontender, no hepatosplenomegaly Musculoskeletal: no cyanosis or clubbing, extremities motor strength 5/5 Skin: no rashes, warm and dry Neurologic: PERRL, EOMI, accommodation nl, no face palsy, no dysarthria Psychiatric: A+Ox3, euthymic affect Principal Diagnosis Strep PNA bacteremia E Coli UTI Discharge Exam ROS-No Headache, No Visual Changes, No Nausea, No Vomiting, No Fever, No Chills, No Neck Pain or Stiffness, No Chest Pain, No Palpitations, No SOB, No LEIVA, + Cough, No Sputum, No Wheezing, less Abdominal Pain, No Diarrhea, No Hematemesis, No Hemoptysis, No Unexpected Weight Loss, No Flank pain, No Melena, No Hematochezia, No Frequency, No Urgency, No Burning, No Hematuria, No Rashes, No Diaphoresis. Appetite is great Physical Exam Gen-AAO x 3, NAD, Afebrile, Obese Head-NCAT, EOMI, PERRLA, Anicteric Sclera, No Posterior Pharyngeal Erythema Neck-Supple, No JVD, No Thyromegaly, No Masses, No LAD, No Bruits Lungs-Clear to Auscultation Bilaterally, No Rales, No Rhonchi, No Wheezing, No Crepitus Chest-No S4, +S1, +S2, No S3, No Murmurs, No Rubs, No Gallops, No Ectopy Abdomen-Soft, Bowel Sounds Present, Non Tender, Non Distended, No Hepatomegaly, No Splenomegaly, No Palpable Masses, No Rebound, No Rigidity, No Guarding Musculoskeletal-Full Range of Motion Bilaterally, No CVAT Extremities-No Cyanosis, No Clubbing, No Edema Nuero-Cranial Nerves II-XII grossly intact, Motor WNL, DTRs WNL, Strength WNL, Non Focal Psych-Normal Mood Discharge Data Allergies Allergy/AdvReac Type Severity Reaction Status Date / Time Penicillins Allergy Unknown Hives Verified 10/15/18 19:20 acetaminophen [From Vicodin] AdvReac Unknown Syncope Verified 10/15/18 19:20 hydrocodone [From Vicodin] AdvReac Unknown Syncope Verified 10/15/18 19:20 nickel AdvReac Unknown Rash Verified 10/15/18 19:20 Consultations 10/15/18 19:42 ED Decision to Admit Stat Current Diagnoses Sepsis, unspecified organism (10/15/18) Hypokalemia (10/15/18) Lobar pneumonia, unspecified organism (10/15/18) Pneumonia, unspecified organism (10/15/18) Acute respiratory failure with hypoxia (10/15/18) Allergies Penicillins Allergy (Unknown, Verified 10/15/18 19:20) Hives acetaminophen [From Vicodin] Adverse Reaction (Unknown, Verified 10/15/18 19:20) Syncope hydrocodone [From Vicodin] Adverse Reaction (Unknown, Verified 10/15/18 19:20) Syncope nickel Adverse Reaction (Unknown, Verified 10/15/18 19:20) Rash Height/Weight/Isolation Height 5 ft 5 in Weight 104 kg CBC 10/15/18 10/15/18 10/15/18 18:35 18:35 18:35 PT 11.8 INR 1.2 H APTT 24.0 PTT Ratio 0.9 Sodium 137 Potassium 2.9 L Chloride 100 Carbon Dioxide 30 Anion Gap 7.0 BUN 11 Creatinine 0.59 L Est Cr Clr Drug Dosing 137.1 Est GFR ( Amer) 124.7 Est GFR (Non-Af Amer) 107.6 BUN/Creatinine Ratio 18.9 Glucose 113 H Lactate Calcium 8.7 Magnesium Total Bilirubin 0.7 AST 9 L ALT 14 Alkaline Phosphatase 84 Troponin I < 0.015 Cancelled Total Protein 7.5 Albumin 2.4 L Globulin 5.1 H Albumin/Globulin Ratio 0.5 L Lipase 157 Cancelled Urine Color Urine Appearance Urine pH Ur Specific [place] Urine Protein Urine Glucose (UA) Urine Ketones Urine Blood Urine Nitrite Urine Bilirubin Urine Urobilinogen Ur Leukocyte Esterase Urine WBC (Auto) Urine RBC (Auto) U Hyaline Cast (Auto) U Epithel Cells (Auto) Urine Bacteria (Auto) Ur Renal Epithelial Cell Nasal Screen MRSA (PCR) Vancomycin Trough Influenza Type A Ag Influenza Type B Ag 10/15/18 10/15/18 10/15/18 18:35 18:54 19:02 PT INR APTT PTT Ratio Sodium Potassium Chloride Carbon Dioxide Anion Gap BUN Creatinine Est Cr Clr Drug Dosing Est GFR ( Amer) Est GFR (Non-Af Amer) BUN/Creatinine Ratio Glucose Lactate 1.0 Calcium Magnesium 2.0 Total Bilirubin AST ALT Alkaline Phosphatase Troponin I Total Protein Albumin Globulin Albumin/Globulin Ratio Lipase Urine Color Urine Appearance Urine pH Ur Specific [place] Urine Protein Urine Glucose (UA) Urine Ketones Urine Blood Urine Nitrite Urine Bilirubin Urine Urobilinogen Ur Leukocyte Esterase Urine WBC (Auto) Urine RBC (Auto) U Hyaline Cast (Auto) U Epithel Cells (Auto) Urine Bacteria (Auto) Ur Renal Epithelial Cell Nasal Screen MRSA (PCR) Vancomycin Trough Influenza Type A Ag Neg for Influ A Influenza Type B Ag Neg for Influ B 10/15/18 10/16/18 10/16/18 19:12 06:19 06:47 PT INR APTT PTT Ratio Sodium 142 Potassium 3.5 D Chloride 109 H Carbon Dioxide 29 Anion Gap 4.0 BUN 12 Creatinine 0.58 L Est Cr Clr Drug Dosing 134.3 Est GFR ( Amer) 125.4 Est GFR (Non-Af Amer) 108.2 BUN/Creatinine Ratio 20.1 H Glucose 103 H Lactate Calcium 8.5 Magnesium 2.1 Total Bilirubin AST ALT Alkaline Phosphatase Troponin I Total Protein Albumin Globulin Albumin/Globulin Ratio Lipase Urine Color Dark Yellow Urine Appearance Clear Urine pH 7.5 Ur Specific [place] 1.022 Urine Protein 2+ H Urine Glucose (UA) Negative Urine Ketones Negative Urine Blood 1+ H Urine Nitrite Positive H Urine Bilirubin Negative Urine Urobilinogen Positive H Ur Leukocyte Esterase Negative Urine WBC (Auto) 1-5 Urine RBC (Auto) 5-10 H U Hyaline Cast (Auto) 1-5 U Epithel Cells (Auto) >30 H Urine Bacteria (Auto) 3+ H Ur Renal Epithelial Cell Not Reportable Nasal Screen MRSA (PCR) Negative Vancomycin Trough Influenza Type A Ag Influenza Type B Ag 10/16/18 10/16/18 10/17/18 17:47 21:26 07:07 PT INR APTT PTT Ratio Sodium 142 Potassium 3.3 L Chloride 109 H Carbon Dioxide 27 Anion Gap 6.0 BUN 9 Creatinine 0.45 L Est Cr Clr Drug Dosing 173.1 Est GFR ( Amer) 136.4 Est GFR (Non-Af Amer) 117.7 BUN/Creatinine Ratio 18.9 Glucose 86 Lactate 1.6 1.7 Calcium 8.5 Magnesium Total Bilirubin AST ALT Alkaline Phosphatase Troponin I Total Protein Albumin Globulin Albumin/Globulin Ratio Lipase Urine Color Urine Appearance Urine pH Ur Specific [place] Urine Protein Urine Glucose (UA) Urine Ketones Urine Blood Urine Nitrite Urine Bilirubin Urine Urobilinogen Ur Leukocyte Esterase Urine WBC (Auto) Urine RBC (Auto) U Hyaline Cast (Auto) U Epithel Cells (Auto) Urine Bacteria (Auto) Ur Renal Epithelial Cell Nasal Screen MRSA (PCR) Vancomycin Trough Influenza Type A Ag Influenza Type B Ag 10/17/18 19:39 PT INR APTT PTT Ratio Sodium Potassium Chloride Carbon Dioxide Anion Gap BUN Creatinine Est Cr Clr Drug Dosing Est GFR ( Amer) Est GFR (Non-Af Amer) BUN/Creatinine Ratio Glucose Lactate Calcium Magnesium Total Bilirubin AST ALT Alkaline Phosphatase Troponin I Total Protein Albumin Globulin Albumin/Globulin Ratio Lipase Urine Color Urine Appearance Urine pH Ur Specific [place] Urine Protein Urine Glucose (UA) Urine Ketones Urine Blood Urine Nitrite Urine Bilirubin Urine Urobilinogen Ur Leukocyte Esterase Urine WBC (Auto) Urine RBC (Auto) U Hyaline Cast (Auto) U Epithel Cells (Auto) Urine Bacteria (Auto) Ur Renal Epithelial Cell Nasal Screen MRSA (PCR) Vancomycin Trough 16.5 Influenza Type A Ag Influenza Type B Ag Chemistry 10/17/18 07:07 Sodium 142 Potassium 3.3 L Chloride 109 H Carbon Dioxide 27 Anion Gap 6.0 BUN 9 Creatinine 0.45 L Glucose 86 Microbiology 10/16/18 10:31 Blood Blood Culture - Preliminary No growth to date. 10/16/18 10:20 Blood Blood Culture - Preliminary No growth to date. 10/15/18 18:54 Blood Blood Culture - Preliminary Streptococcus pneumoniae 10/15/18 18:35 Blood Blood Culture - Final Streptococcus pneumoniae 10/15/18 19:12 Urine,Clean Catch Urine Culture - Final Escherichia coli Hospital Course (1) Acute respiratory failure with hypoxia: (2) Sepsis: (3) Pneumonia: -MedSurg w/ telemetry -Patient presenting from home with progressive cough and shortness of breath; in the ED, CXR showing bibasilar pneumonia -On presentation, oxygen saturation 88% on room air which improved with oxygen 2 L via nasal cannula -WBC 16 K, tachycardic, tachypneic, low-grade fever of 38.0; lactate 1.0, BP stable -S/P azithromycin and cefepime in the ED; 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, will continue cefepime and azithromycin, added vancomycin for +Blood Culture- Strep Pneumo -Rapid influenza testing negative, will check PCR -Pulmonary toilet with nebs, incentive spirometry, flutter valve -+blood Culture Strep Pneumo and Urine Cx +E Coli, both sensitive to Ceftin Repeat Blood cultures remain neg, DC home on Ceftin and Potassium (4) Hypokalemia: -K+ 3.3 -PO K on DC (5) DVT prophylaxis: -SQ Lovenox Total Time Total Time Spent Total Time Spent (In Minutes): 40 mins Total Time Includes: Examination of the Patient, Discharge Planning, Medication Reconciliation and Communication With Other Providers Discharge Plan Discharge Items Patient Disposition: Home - Self-Care Reason For Visit: PNEUMONIA Discharge Diagnosis: Strep Pneumonia with Bacteremia E. Coli UTI Discharge Goals: Improve nutritional status Activity: Resume your previous activity Lifting: None and Gradually increase as tolerated Bathing: No limitations Sexual Activity: When tolerated Exercise/Sports: Gradually increase as tolerated Driving/Machine Use: No limitations Weightbearing: Left weightbearing and Right weightbearing Non-emergency contact: Primary Care Provider Call non-emergency contact if: your symptoms worsen Follow-up/Referrals: Carlene Mathias [Primary Care Provider] - Diet: Regular Addtl Provider Instructions: none Prescriptions: New Robitussin Cough-Chest Emre DM 5-100 mg/5 mL liquid 10 ml PO Q6H PRN (Reason: cough) Qty: 237 RF: 0 cefuroxime axetil 500 mg tablet 500 mg PO BID 12 Days Qty: 24 RF: 0 Continued ascorbic acid (vitamin C) 1,000 mg Tablet 1 g PO DAILY RF: 0 sumatriptan succinate [Imitrex] 50 mg Tablet 1 tab PO UD RF: 0 ferrous sulfate 325 mg (65 mg iron) Tablet 325 mg PO DAILY RF: 0 magnesium 250 mg Tablet 250 mg PO DAILY RF: 0 vitamin E 400 unit Capsule 400 unit PO DAILY RF: 0 [id number]-fish oil-vit D3 [Fish Oil-Vit D3] 300-1,000-1,000 mg-mg-unit Capsule 1 cap PO DAILY RF: 0 calcium carbonate-vitamin D3 [Calcium 600 with Vitamin D3] 600 mg(1,500mg) - 500 unit Capsule 1 cap PO DAILY RF: 0 Visit Report Forms: Smoking Cessation Stand-Alone Forms: My [facility], Work/School Release (Inpt) Discharge Orders: Discharge Order (Routine); Ordered 10/18/18 Ordered By: Homer Harvey Admission Data Admit Date/Time: 10/15/18 19:59 Attending Provider: Homer Harvey Admit Provider: Enrique Luna Primary Care Provider: Carlene Mathias Other Providers: Enrique Luna Service: Telemetry Medical
[2018-10-18 08:31] LABS: Hemoglobin 10.9 g/dL (12.0-16.0); Mean Corpuscular Volume 87.5 fL (80-100); Mean Platelet Volume 10.4 fL (7.4-10.4); Platelet Count 364 K/uL (130-400); RDW Standard Deviation 44.4 fL (36.4-46.3); Red Blood Count 3.77 M/uL (4.2-5.4); White Blood Count 6.55 K/uL (4.8-10.8)
[2018-10-18 08:49] LABS: BUN Creatinine Ratio 9.1 (10-20); Calcium 9.1 mg/dl (8.5-10.1); Creatinine Clr Calc Pharmacy 169.7 ml/min; Est GFR (African American) 133.5; Est GFR (Non-African American) 115.2; Potassium 3.6 mmol/L (3.5-5.1)
[2018-10-18 09:07] LABS: Basophils # (auto) 0.03 K/uL (0-0.2); Basophils % (auto) 0.5 %; Eosinophils % (auto) 3.1 %; Immature Granulocytes % (auto) 6.1 %; Lymphocytes # (auto) 1.42 K/uL (1.2-3.4); Lymphocytes % (auto) 21.7 %; Monocytes # (auto) 0.72 K/uL (0.11-0.59); Neutrophils # (auto) 3.78 K/uL (1.4-6.5); Neutrophils % (auto) 57.6 %
--- NOTE | 2018-10-21 14:04 | Coding Query ---
SEPSIS To promote full compliance with coding requirements relating to patient care, physician participation is requested in all cases of executive director sheltered workshop uncertainty. Please assist us with the question(s) below: Throughout the medical record, you have clearly documented a localized infection and your patient has clinical evidence of a generalized sepsis or severe sepsis. The term urosepsis is a nonspecific entity and is coded as an UTI. If the patient has sepsis, severe sepsis, from an urinary source or some other source, please clarify in your response below. The medical record reflects the following clinical findings: Patient admitted with positive blood culture/strep pneu and pneumonia. Discharge summary and progress notes mention both bacteremia and pneumonia. Please check below the diagnosis that was treated during this Inpatient stay. Thanks for your help! Prem ____ ( )Bacteremia (Nonspecific laboratory finding of bacteria in the blood) Specify Organism ( ) Present on Admission ( ) Not present on admission ( ) Unable to clinically determine ( ) Septicemia (Systemic disease associated with the presence of pathogenic microorganisms in the blood): Specify Organism ( ) Present on Admission ( ) Not present on admission ( ) Unable to clinically determine (X ) Sepsis Specify Organism E Coli and Strep Pneumonia Specify Associated Condition/Diagnosis (X) Present on Admission () Not present on admission () Unable to clinically determine () Severe Sepsis (Sepsis associated with acute organ dysfunction) Specify Organism Specify Associated Condition/Diagnosis () Present on Admission () Not present on admission () Unable to clinically determine () Septic Shock (Severe sepsis with acute circulatory failure, unexplained by other causes) () Present on Admission () Not present on admission () Unable to clinically determine () Other, patient has: MTDD
== END 2018-10-18 11:18 | disposition home or self-care (01) | DRG 871 ==
LOC: ED 17:41 → 2W 19:59